=== PATIENT | female | born 1965 | race Caucasian/White ===

== ENCOUNTER → 2017-12-19 | Outpatient (CLI) | payer OTHER ==
[2017-12-19 14:07] LABS: Calcium, Urine <5.0 mg/dL (2.0-17.5); Calcium, Urine Calculation Unable to Calculate mg/24hrs (42.0-353.0)
[2017-12-19 14:12] LABS: Creatinine Urine 96.2 mg/dL (27.00-270.00); Protein, Urine Quantitative 9.8 mg/dL (0.0-11.9); Uric Acid, Urine 20.7 mg/dL (7.5-49.5)
[2017-12-19 14:16] LABS: Microalbumin, Urine Quant. 10.9 mg/L (0.000-20.000)
== END ==
LOC: LAB 08:21
PROVIDERS: Internal Medicine Nephrology
DX: N18.3 Chronic kidney disease, stage 3 (moderate) (principal); N25.81 Secondary hyperparathyroidism of renal origin; E55.9 Vitamin D deficiency, unspecified; E78.00 Pure hypercholesterolemia, unspecified; R76.9 Abnormal immunological finding in serum, unspecified; R94.5 Abnormal results of liver function studies; R94.6 Abnormal results of thyroid function studies
CPT/HCPCS: 81050; 82043; 82340; 82570; 84105; 84133; 84156; 84300; 84560

== ENCOUNTER 2020-09-09 17:32 | Observation (INO) | payer BC ==
[~2020-09-09] VITALS: Ht 167.6 cm; Wt 93.6 kg
[2020-09-09 18:44] LABS: BASOPHILS ABSOLUTE AUTO 0.05 K/mm3 (0.00-0.23); BASOPHILS PERCENT AUTO 1 % (0-2); EOSINOPHILS ABSOLUTE AUTO 0.98 K/mm3 (0.00-0.68); EOSINOPHILS PERCENT AUTO 10 % (0-6); Hematocrit 36.9 % (33.0-51.0); Hemoglobin 12.2 g/dL (11.5-16.0); IMMATURE GRAN ABSOLUTE AUTO 0.05 K/mm3 (0.00-0.10); IMMATURE GRAN PERCENT AUTO 1 % (0-1); LYMPHOCYTES ABSOLUTE AUTO 1.99 K/mm3 (0.84-5.20); LYMPHOCYTES PERCENT AUTO 21 % (21-46); MONOCYTES ABSOLUTE AUTO 0.77 K/mm3 (0.16-1.47); MONOCYTES PERCENT AUTO 8 % (4-13); Mean Corpuscular HGB 29.1 pg (26.0-34.0); Mean Corpuscular HGB Conc 33.1 g/dL (31.5-36.5); Mean Corpuscular Volume 88 fL (80-100); Mean Platelet Volume 10.1 fL (9.1-12.4); NEUTROPHILS PERCENT AUTO 59 % (41-73); Platelet Count 298 K/mm3 (150-400); RDW Coefficient Variation 12.2 % (11.7-14.2); RDW Standard Deviation 39.2 fL (35.1-46.3); Red Blood Cell Count 4.19 M/mm3 (3.80-5.20); White Blood Cell Count 9.44 K/mm3 (4.00-11.30)
[2020-09-09 19:08] LABS: Albumin, Blood 3.7 g/dL (3.4-5.0); Albumin/Globulin Ratio 0.8 (0.8-1.8); Bilirubin, Total 0.9 mg/dL (0.1-1.0); Bun/Creatinine Ratio 13.2 (12.0-20.0); Calcium, Blood 6.2 mg/dL (8.5-10.1); Creatinine, Blood 1.14 mg/dL (0.40-1.00); Globulin, Blood 4.7 g/dL (2.2-4.0); Phosphorus, Blood 4.8 mg/dL (2.5-4.9); Potassium, Blood 3.6 mmol/L (3.5-5.5); Total Protein, Blood 8.4 g/dL (6.4-8.2)
[2020-09-09 19:13] LABS: Thyroid Stimulating Hormone 0.555 uIU/mL (0.360-4.800)
[2020-09-09 20:15] LABS: Source, Urine Clean Catch
[2020-09-09 20:22] LABS: Appearance, Urine Clear (Clear); Blood, Urine 1+ (Neg); Color, Urine Amber (P-Yellow); Glucose Qualitative, Urine Neg (Neg); Ketones, Urine 2+ (Neg); Leukocyte Esterase, Urine 2+ (Neg); Nitrite, Urine Neg (Neg); Protein, Urine 1+ (Neg); Specific Gravity, Urine 1.015 (1.003-1.022); Urobilinogen, Urine 2+ (Normal)
[2020-09-09 20:27] LABS: Bilirubin, Urine 1+ (Neg)
[2020-09-09 20:28] LABS: Bacteria Many /hpf; Mucus Light (0-Heavy); Red Blood Cells, Urine 0-2 /hpf (0-2); Squamous Epithelial Cells Few /hpf (Few)
[2020-09-09] MEDS ORDERED: OXYC5 PO (21:49)
[2020-09-09] MEDS ORDERED: EUTHYROX150 MC1 PO (21:49)
[2020-09-09] MEDS ORDERED: CALCIUM 500 +1 EAC4 PO (21:49)
[2020-09-09] MEDS ORDERED: ATOR10 PO (21:50)
[2020-09-09] MEDS ORDERED: ALLOPURINOL100 M1 PO (21:50)
[2020-09-09] MEDS ORDERED: OMEP20ER PO (21:51)
[2020-09-09] MEDS ORDERED: Prinivil10 MG PO (21:51)
[2020-09-09] MEDS ORDERED: CALCITRIOL0.5 MC1 PO (22:03)
[2020-09-10 03:59] LABS: BASOPHILS ABSOLUTE AUTO 0.05 K/mm3 (0.00-0.23); BASOPHILS PERCENT AUTO 1 % (0-2); EOSINOPHILS ABSOLUTE AUTO 0.88 K/mm3 (0.00-0.68); EOSINOPHILS PERCENT AUTO 11 % (0-6); Hemoglobin 11.3 g/dL (11.5-16.0); IMMATURE GRAN ABSOLUTE AUTO 0.06 K/mm3 (0.00-0.10); IMMATURE GRAN PERCENT AUTO 1 % (0-1); LYMPHOCYTES ABSOLUTE AUTO 1.91 K/mm3 (0.84-5.20); LYMPHOCYTES PERCENT AUTO 24 % (21-46); MONOCYTES ABSOLUTE AUTO 0.74 K/mm3 (0.16-1.47); MONOCYTES PERCENT AUTO 9 % (4-13); Mean Corpuscular HGB 29.4 pg (26.0-34.0); Mean Corpuscular HGB Conc 33.2 g/dL (31.5-36.5); Mean Corpuscular Volume 89 fL (80-100); Mean Platelet Volume 10.1 fL (9.1-12.4); NEUTROPHILS ABSOLUTE AUTO 4.24 K/mm3 (1.96-9.15); NEUTROPHILS PERCENT AUTO 54 % (41-73); Platelet Count 247 K/mm3 (150-400); RDW Coefficient Variation 12.2 % (11.7-14.2); RDW Standard Deviation 39.2 fL (35.1-46.3); Red Blood Cell Count 3.84 M/mm3 (3.80-5.20); White Blood Cell Count 7.88 K/mm3 (4.00-11.30)
[2020-09-10 04:16] LABS: Bun/Creatinine Ratio 12.1 (12.0-20.0); Calcium, Blood 6.3 mg/dL (8.5-10.1); Creatinine, Blood 1.07 mg/dL (0.40-1.00); Potassium, Blood 3.9 mmol/L (3.5-5.5)
--- NOTE | 2020-09-10 04:28 | NUR ---
SHIFT SUMMARY PT ARRIVED TO THE UNIT AT 0110. PT STATED FEELING NAUSEOUS AND HAVING TINGLING AND NUMBNESS IN FEET, HANDS, AND FACE. PT WAS ABLE TO STAND AND TRANSFER FROM ER BED TO HOSPITAL BED. PT STATED MILD LIGHTHEADEDNESS WHEN FIRST STANDING BUT QUICKLY RESOLVED. VITALS WERE STABLE WITH BP 120-130'S SYSTOLIC. HR 100'S. O2 SATS >95% ON ROOM AIR, NO SOB. PT STATED FEELING BETTER BY AM WITH THE NUMBNESS AND TINGLING ALOMST COMPLETLY GONE. PT WAS NO LONGER NAUSEOUS. SURGICAL SITE ON NECK IS HEALING, DRY WITH NO DRAINAGE, DRESSING IS C/D/I. AM LABS SHOWED MINIMAL INCREASE IN BLOOD CALCIUM LEVELS. PT HAD A QUIET UNEVENTFUL ADMISSION AND NIGHT.
--- NOTE | 2020-09-10 07:25 | NUR ---
Bedside report from SILVINA Thompson. Pt is awake, denies pain needing treatment at this time. Incision over mid neck with dry intact steri strips. No redness, no swelling, no drainage noted. Pt reports numbness/tingling in her right arm mainly, states much improved since last night when she felt like her entire body was so numb. Dr. Mann here, asking if there is an official consult. None noted, but noc shift RN tells me that ER doc did talk with him on the phone, and he is the underwriter solicitation director for the pt as outpatient.
--- NOTE | 2020-09-10 09:04 | NUR ---
SUDDEN Onset of nausea and hot flash. Given zofran at this time, cool washcloth and fan provided for relief. No vomiting. Pt is sitting up, call light in reach. STates will call if no relief.
--- NOTE | 2020-09-10 09:38 | NUR ---
spoke with Dr. Reich at this time. Reported pt condition this morning. No nephrology consultation is indicated, so none ordered. Pt reports that she did not vomit, and states the measures taken have brought her relief.
--- NOTE | 2020-09-10 10:36 | NUR ---
Pt appears to be sleeping soundly.
--- NOTE | 2020-09-10 14:26 | NUR ---
Call to Dr. Reich with results of ionized calcium lab. She will put in new orders; uncertain if pt will discharge today or not, she states.
[2020-09-11 04:27] LABS: Albumin, Blood 2.9 g/dL (3.4-5.0); Anion Gap 5 mmol/L (6-16); Blood Urea Nitrogen 10 mg/dL (8-24); Bun/Creatinine Ratio 9.9 (12.0-20.0); CO2, Blood 26 mmol/L (21-32); Calcium, Blood 7.5 mg/dL (8.5-10.1); Chloride, Blood 113 mmol/L (98-108); Creatinine, Blood 1.01 mg/dL (0.40-1.00); Glomerular Filtration Rate >60 (60-); Glucose, Blood 84 mg/dL (70-99); Magnesium, Blood 1.9 mg/dL (1.6-2.4); Phosphorus, Blood 4.8 mg/dL (2.5-4.9); Potassium, Blood 4.3 mmol/L (3.5-5.5); Sodium, Blood 144 mmol/L (136-145)
--- NOTE | 2020-09-11 06:33 | NUR ---
SHIFT SUMMARY PT WAS ALERT, ORIENTED, AND COOPERATIVE WITH CARE. PT HAD AN UNEVENTFUL QUIET NIGHT WITH MINIMAL CHANGE FROM PREVIOUS NOC SHIFT. PT STATED NUMBNESS AND TINGLING HAD DECREASED AND IS ALMOST GONE. VITALS WERE STABLE WITH BP 116-136 SYSTOLIC. HR 70-80'S. O2 SATS >94% ON ROOM AIR. PT IS DOING WELL AND HAD A RESTFUL NIGHT.
[2020-09-11] MEDS ORDERED: Calcium Carbon500 M1 PO (08:46)
[2020-09-11] MEDS ORDERED: ERGO50000 PO (08:47)
[2020-09-11] MEDS ORDERED: DOCU100 PO (08:48)
[2020-09-11] MEDS ORDERED: SENN187 PO (08:49)
[2020-09-11] MEDS ORDERED: MAGNESIUM OXID500 MG PO (08:49)
== END 2020-09-11 10:49 | disposition home or self-care (01) ==
LOC: ER 17:32 → PCU 17:33
PROVIDERS: Internal Medicine; Nurse Practitioner Acute Care; Physician Assistant; ADMIT Internal Medicine
DX: E83.51 Hypocalcemia (principal); E89.0 Postprocedural hypothyroidism; I12.9 Hypertensive chronic kidney disease with stage 1 through stage 4 chronic kidney disease, or unspecified chronic kidney disease; N18.31 Chronic kidney disease, stage 3a; K21.9 Gastro-esophageal reflux disease without esophagitis; Z88.5 Allergy status to narcotic agent; E78.5 Hyperlipidemia, unspecified; Z87.891 Personal history of nicotine dependence
CPT/HCPCS: 36415; 80048; 80053; 80069; 81001; 82306; 82330; 83690; 83735; 83970; 84100; 84443; 85025; 87086; 93005; 93010; 96361; 96365; 96366; 96372; 96375; 96376; 99285-25; A9270; G0378; J0610; J1650; J2405; J3480; J7030

== ENCOUNTER 2023-03-29 07:58 | Day surgery (SDC) | payer BC ==
[~2023-03-29] VITALS: Ht 167.6 cm; Wt 90.6 kg
[~2023-03-29 07:58] MED LIST: ALLOPURINOL100 M1 PO; ATOR10 PO; CALCITRIOL0.5 MC1 PO; CALCIUM 500 +1 EAC4 PO; Calcium Carbon500 M1 PO; DOCU100 PO; ERGO50000 PO; EUTHYROX150 MC1 PO; MAGNESIUM OXID500 MG PO; OMEP20ER PO; OXYC5 PO; Prinivil10 MG PO; SENN187 PO
[2023-03-29 10:03] VITALS: BP 103/68
--- NOTE | 2023-03-29 10:07 | NUR ---
03/29/23 Linda Hanks IV D/C'D WITH CATH TIP INTACT. SITE WNL, SO SWELLING OR BLEEDING NOTED.
== END 2023-03-29 10:11 | disposition home or self-care (01) ==
LOC: ORSCSDS 07:58
PROVIDERS: Internal Medicine Gastroenterology
PROC: 0DBL8ZX Excision of Transverse Colon, Via Natural or Artificial Opening Endoscopic, Diagnostic (ICD-10-PCS; principal; 2023-03-29 09:30)
PROC: 0DBK8ZX Excision of Ascending Colon, Via Natural or Artificial Opening Endoscopic, Diagnostic (ICD-10-PCS; principal; 2023-03-29 09:30)
PROC: 0DBN8ZX Excision of Sigmoid Colon, Via Natural or Artificial Opening Endoscopic, Diagnostic (ICD-10-PCS; principal; 2023-03-29 09:30)
DX: Z12.11 Encounter for screening for malignant neoplasm of colon (principal); D12.2 Benign neoplasm of ascending colon; D12.3 Benign neoplasm of transverse colon; K63.5 Polyp of colon; K57.30 Diverticulosis of large intestine without perforation or abscess without bleeding; K64.8 Other hemorrhoids; I10 Essential (primary) hypertension; Z87.891 Personal history of nicotine dependence; Z79.899 Other long term (current) drug therapy
CPT/HCPCS: 88305; J2704; J7120

== ENCOUNTER 2023-07-16 12:51 | Observation (INO) | payer BC ==
[~2023-07-16] VITALS: Ht 165.1 cm; Wt 72.6 kg
[2023-07-16 13:28] LABS: Hematocrit 41.5 % (33.0-51.0); Hemoglobin 13.2 g/dL (11.5-16.0); Mean Corpuscular HGB 28.1 pg (26.0-34.0); Mean Corpuscular HGB Conc 31.8 g/dL (31.5-36.5); Mean Corpuscular Volume 88 fL (80-100); Mean Platelet Volume 10.3 fL (9.1-12.4); Platelet Count 352 K/mm3 (150-400); RDW Coefficient Variation 12.6 % (11.7-14.2); RDW Standard Deviation 41.1 fL (35.1-46.3); White Blood Cell Count 22.13 K/mm3 (4.00-11.30)
[2023-07-16 13:49] LABS: Albumin, Blood 3.9 g/dL (3.4-5.0); Albumin/Globulin Ratio 0.8 (0.8-1.8); Bilirubin, Total 0.6 mg/dL (0.1-1.0); Bun/Creatinine Ratio 16.4 (12.0-20.0); Creatinine, Blood 1.46 mg/dL (0.40-1.00); Globulin, Blood 4.8 g/dL (2.2-4.0); Magnesium, Blood 2.3 mg/dL (1.6-2.4); Phosphorus, Blood 1.4 mg/dL (2.5-4.9); Potassium, Blood 3.3 mmol/L (3.5-5.5); Total Protein, Blood 8.7 g/dL (6.4-8.2)
[2023-07-16 13:57] LABS: BAND PERCENT MAN 2 % (0-8); BASOPHILS PERCENT MAN 0 % (0-2); EOSINOPHILS ABSOLUTE MAN 0.22 K/mm3 (0.00-0.68); EOSINOPHILS PERCENT MAN 1 % (0-6); LYMPHOCYTES % ATYPICAL MANUAL 2 % (0-0); LYMPHOCYTES ABSOLUTE MAN 6.86 K/mm3 (0.84-5.20); LYMPHOCYTES PERCENT MAN 29 % (21-46); MONOCYTES ABSOLUTE MAN 0.66 K/mm3 (0.16-1.47); MONOCYTES PERCENT MAN 3 % (4-13); NEUTROPHILS ABSOLUTE MAN 14.38 K/mm3 (1.96-9.15); SEG NEUTROPHILS PERCENT MAN 63 % (41-73); TOTAL CELLS COUNTED 100
[2023-07-16] MEDS ORDERED: AMOX-CLAV 500-1 EAC5 PO (14:27)
[2023-07-16 20:20] VITALS: BP 103/78
[2023-07-17 03:20] VITALS: BP 109/72
--- NOTE | 2023-07-17 04:54 | NUR ---
SHIFT SUMMARY 57 YR F ADMITTED ON 07/16/23 FOR SEIZURE. FULL CODE. PT HAS NO OBVIOUS NEUROLOGICAL DEFICITS AND HAS NOT EXPERIENCED ANY SIZURE ACTIVITY SINCE BEING ADMITTED. SHE IS , HOWEVER, HAVING EXTREME CHEST PAIN AFTER BEING GIVEN CHEST COMPRESSIONS. ANY MOVEMENT AT ALL IS PAINFUL FOR HER. SHE IS BEING GIVEN PAIN MEDS PER EMAR WHICH SHE STATES DOES HELP. HER DAUGHTER STAYED THE NIGHT IN THE ROOM WITH HER AND OFFERED ASSISTANCE WHEN PT AMBULATED TO THE BATHROOM.
[2023-07-17 05:13] LABS: BASOPHILS ABSOLUTE AUTO 0.04 K/mm3 (0.00-0.23); BASOPHILS PERCENT AUTO 1 % (0-2); EOSINOPHILS ABSOLUTE AUTO 0.19 K/mm3 (0.00-0.68); EOSINOPHILS PERCENT AUTO 2 % (0-6); Hematocrit 32.3 % (33.0-51.0); Hemoglobin 10.3 g/dL (11.5-16.0); IMMATURE GRAN ABSOLUTE AUTO 0.05 K/mm3 (0.00-0.10); IMMATURE GRAN PERCENT AUTO 1 % (0-1); LYMPHOCYTES ABSOLUTE AUTO 2.51 K/mm3 (0.84-5.20); LYMPHOCYTES PERCENT AUTO 30 % (21-46); MONOCYTES ABSOLUTE AUTO 0.56 K/mm3 (0.16-1.47); MONOCYTES PERCENT AUTO 7 % (4-13); Mean Corpuscular HGB 27.8 pg (26.0-34.0); Mean Corpuscular HGB Conc 31.9 g/dL (31.5-36.5); Mean Corpuscular Volume 87 fL (80-100); Mean Platelet Volume 9.9 fL (9.1-12.4); NEUTROPHILS ABSOLUTE AUTO 5.15 K/mm3 (1.96-9.15); NEUTROPHILS PERCENT AUTO 61 % (41-73); Platelet Count 226 K/mm3 (150-400); RDW Coefficient Variation 12.8 % (11.7-14.2); RDW Standard Deviation 40.5 fL (35.1-46.3)
[2023-07-17 05:47] LABS: Thyroid Stimulating Hormone 0.481 uIU/mL (0.360-4.800)
[2023-07-17 05:58] LABS: Albumin/Globulin Ratio 0.8 (0.8-1.8); Bilirubin, Total 0.4 mg/dL (0.1-1.0); Bun/Creatinine Ratio 15.2 (12.0-20.0); Calcium, Blood 7.9 mg/dL (8.5-10.1); Creatinine, Blood 1.38 mg/dL (0.40-1.00); Globulin, Blood 3.7 g/dL (2.2-4.0); Phosphorus, Blood 3.7 mg/dL (2.5-4.9); Potassium, Blood 3.9 mmol/L (3.5-5.5)
[2023-07-17 06:00] LABS: Total Protein, Blood 6.7 g/dL (6.4-8.2)
[2023-07-17 07:46] VITALS: BP 91/73
[2023-07-17 15:05] VITALS: BP 108/75
--- NOTE | 2023-07-17 17:37 | NUR ---
SHIFT SUMMARY PATIENT ALERT AND ORIENTED. CONTINUES TO HAVE MID STERNAL PAIN ESPECIALLY WITH MOVEMENT OR WHEN SHE COUGHS. MRI AND EEG DONE. PATIENT INDEPENDENT IN THE ROOM WITH DAUGHTER STAND BY. PATIENT AMBULATED IN THE TABOR INDEPENDENTLY. PROVIDED EDUCATION RELATED TO PAIN AND GUARDING. THE IMPORTANCE OF COUGHING AND DEEP BREATHING TO PREVENT PNEUMONIA. MEDICATED PER MAR FOR PAIN. HEATING PAD PROVIDED. NON PHARMACOLOGICAL OPTIONS PROVIDED FOR PAIN INCLUDING HOT SHOWER.
[2023-07-17 19:26] VITALS: BP 115/77
[2023-07-18 02:50] VITALS: BP 113/74
--- NOTE | 2023-07-18 04:50 | NUR ---
SHIFT SUMMARY. PATIENT IS AOX4. PATIENT IS PLEASANT AND COOPERATIVE WITH CARE. PATIENT CONTINUES TO HAVE MID STERNAL PAIN WITH MOVEMENT AND COUGHING-PATIENT HAS A ROLLED BLANKET SHE IS USING TO BRACE WITH COUGHING. PATIENT IS INDEPENDEDNT IN ROOM WITH DAUGHTER STAND BY. PATIENTS PAIN ASSESSED AND MEDICATED PER EMAR. PATIENT CALLS APPROPRIATELY AND IS ABLE TO MAKE HER NEEDS KNOWN. PATIENT REPORTS THAT SHE THINK THE PAIN IS STARTING TO GET A LITTLE BETTER. BED IS LOCKED IN THE LWOEST POSITION WITH CALL LIGHT IN REACH. NO S/S OF DISTRESS NOTED AT THIS TIME. CARE ONGOING.
[2023-07-18 06:28] LABS: Bun/Creatinine Ratio 11.5 (12.0-20.0); Calcium, Blood 8.2 mg/dL (8.5-10.1); Creatinine, Blood 1.39 mg/dL (0.40-1.00); Phosphorus, Blood 3.4 mg/dL (2.5-4.9); Potassium, Blood 4.1 mmol/L (3.5-5.5)
[2023-07-18 07:40] VITALS: BP 89/67
[2023-07-18 07:47] LABS: Hematocrit 33.1 % (33.0-51.0); Hemoglobin 10.6 g/dL (11.5-16.0)
--- NOTE | 2023-07-18 08:47 | NUR ---
dr. chavis notified of low bp, lisinopril held. rn to recheck bp 10 min
[2023-07-18 09:05] VITALS: BP 127/74
[2023-07-18 10:30] VITALS: BP 126/83
[2023-07-18 10:31] VITALS: BP 116/83
[2023-07-18 10:33] VITALS: BP 105/77
--- NOTE | 2023-07-18 11:13 | NUR ---
dr. chavis notified of orthostatic blood pressure results. there was a 20 point sbp drop from laying to standing. per dr. chavis. stop the lisinopril, educate pt to wear compression stockings, hydrate, slow position changes, and follow up with pcp. ok to continue with discharge
[2023-07-18] MEDS ORDERED: Acetaminophen650 M1 PO (12:10)
[2023-07-18] MEDS ORDERED: TRAM50 PO (12:11)
--- NOTE | 2023-07-18 14:25 | NUR ---
PT DISCHARGED HOME. FAMILY AT PT BEDSIDE. ALERT AND ORIENTED X4. SBA DUE TO PAIN IN RIBS. DISCHARGE INSTRUCTIONS DISCUSSED WITH PT AND FAMILY. EMPHASIZED IMPORTANCE OF PCP FOLLOW UP AND TO DISCUSS ORTHOSTATIC HYPOTENSION WITH PCP AT THAT TIME. EDUCATED PT TO STAY HYDRATED, WEAR COMPRESSION STOCKINGS, STOP LISINOPRIL, AND BE MINDFUL WITH CHANGING POSITION. NO QUESTIONS OR CONCERNS AT TIME OF DISCHARGE.
== END 2023-07-18 13:12 | disposition home or self-care (01) ==
LOC: ER 12:51 → MEDS 17:41
PROVIDERS: Family Medicine; Internal Medicine; Physician Assistant; ADMIT Internal Medicine
DX: G40.409 Other generalized epilepsy and epileptic syndromes, not intractable, without status epilepticus (principal); E87.6 Hypokalemia; E83.39 Other disorders of phosphorus metabolism; D63.1 Anemia in chronic kidney disease; N18.30 Chronic kidney disease, stage 3 unspecified; I95.1 Orthostatic hypotension; Z87.891 Personal history of nicotine dependence; Z88.5 Allergy status to narcotic agent; E03.9 Hypothyroidism, unspecified
CPT/HCPCS: 36415; 70450; 70551; 71045; 80048; 80053; 82330; 83690; 83735; 84100; 84439; 84443; 84484; 85014; 85018; 85025; 93005; 93010; 95819; 96361; 96374; 96375; 96376; 99285-25; A9270; G0378; J0780; J1170; J2405; J2765; J7030; J7060; J7120

== ENCOUNTER 2023-07-21 19:15 | Emergency (ER) | payer BC ==
[~2023-07-21] VITALS: Ht 165.1 cm; Wt 90.3 kg
[~2023-07-21 19:15] MED LIST changes: +AMOX-CLAV 500-1 EAC5 PO; +Acetaminophen650 M1 PO; +TRAM50 PO
[2023-07-21 20:25] LABS: BASOPHILS ABSOLUTE AUTO 0.08 K/mm3 (0.00-0.23); BASOPHILS PERCENT AUTO 1 % (0-2); EOSINOPHILS ABSOLUTE AUTO 0.35 K/mm3 (0.00-0.68); EOSINOPHILS PERCENT AUTO 3 % (0-6); Hematocrit 40.8 % (33.0-51.0); Hemoglobin 13.1 g/dL (11.5-16.0); IMMATURE GRAN ABSOLUTE AUTO 0.05 K/mm3 (0.00-0.10); IMMATURE GRAN PERCENT AUTO 0 % (0-1); LYMPHOCYTES ABSOLUTE AUTO 1.84 K/mm3 (0.84-5.20); LYMPHOCYTES PERCENT AUTO 16 % (21-46); MONOCYTES ABSOLUTE AUTO 0.61 K/mm3 (0.16-1.47); MONOCYTES PERCENT AUTO 5 % (4-13); Mean Corpuscular HGB 28.3 pg (26.0-34.0); Mean Corpuscular HGB Conc 32.1 g/dL (31.5-36.5); Mean Corpuscular Volume 88 fL (80-100); Mean Platelet Volume 9.9 fL (9.1-12.4); NEUTROPHILS PERCENT AUTO 74 % (41-73); Platelet Count 291 K/mm3 (150-400); RDW Coefficient Variation 12.9 % (11.7-14.2); RDW Standard Deviation 41.4 fL (35.1-46.3); Red Blood Cell Count 4.63 M/mm3 (3.80-5.20); White Blood Cell Count 11.33 K/mm3 (4.00-11.30)
[2023-07-21 20:46] LABS: Albumin, Blood 3.9 g/dL (3.4-5.0); Albumin/Globulin Ratio 0.7 (0.8-1.8); Bun/Creatinine Ratio 12.9 (12.0-20.0); Calcium, Blood 9.1 mg/dL (8.5-10.1); Creatinine, Blood 1.39 mg/dL (0.40-1.00); Globulin, Blood 5.3 g/dL (2.2-4.0); Potassium, Blood 4.5 mmol/L (3.5-5.5); Total Protein, Blood 9.2 g/dL (6.4-8.2)
[2023-07-21] MEDS ORDERED: Ketorolac Tromethamine 15mg Vial IV ONE (22:35)
[2023-07-21] MEDS ORDERED: Prochlorperazine Edisylate 10 mg Vial IV ONE (22:35)
[2023-07-21] MEDS ORDERED: Amoxicillin/Clavulanate K 875 MG Tab PO ONE (22:50)
[2023-07-21] MEDS ORDERED: Doxycycline Hyclate 100 MG TAB PO ONE (22:50)
[2023-07-21] MEDS ORDERED: Albuterol 2.5 MG/3 ML VIAL INH SCH (22:50)
[2023-07-21] MEDS ORDERED: Polyethylene Glycol 3350 17 gm PO ONE (22:50)
[2023-07-21] MEDS ORDERED: Bisacodyl 5 MG TabEC PO ONE (22:50)
[2023-07-21] MEDS ORDERED: Morphine Sulfate 4 MG/1 ML Injection IV ONE (22:55)
[2023-07-21] MEDS ORDERED: MIRALAX1714 PO (23:02)
[2023-07-21] MEDS ORDERED: BISA5EC PO (23:02)
[2023-07-21] MEDS ORDERED: LIDOCAINE1 EACH TOP (23:02)
[2023-07-21] MEDS ORDERED: RX Prepack Albuterol 1 PREPACK/6.7 GM INH UD ONE (23:25)
[2023-07-22 00:01] VITALS: BP 110/66
== END 2023-07-22 | disposition home or self-care (01) ==
LOC: ER 19:15
PROVIDERS: Student in an Organized Health Care Education/Training Program
DX: R07.89 Other chest pain (principal); K21.9 Gastro-esophageal reflux disease without esophagitis; Z79.899 Other long term (current) drug therapy; Z88.5 Allergy status to narcotic agent
CPT/HCPCS: 71260; 80053; 84484; 85025; 85379; 93005; 93010; 94640; 94664; 96374; 96375; 99285-25; A9270; J0780; J1885; J2270; Q9967